=== PATIENT | male | born 1950 | race Caucasian/White ===

== ENCOUNTER 2020-12-11 18:38 | Emergency (ER) | payer MEDICARE, OTHER ==
[~2020-12-11] VITALS: Ht 175.3 cm; Wt 79.4 kg
[2020-12-11] MEDS ORDERED: LIDOCAINE HCL-MPF 2% 5ML VIAL ONE (18:44)
[2020-12-11] MEDS ORDERED: LIDOCAINE HCL-MPF 2% 5ML VIAL IM SCH (19:00)
[2020-12-11] MEDS ORDERED: DIPH,PERTUSS(ACELL),TET VAC/PF 0.5 ML VIAL IM ONE ×2 (19:00→21:00)
[2020-12-11 20:24] VITALS: BP 155/88
== END 2020-12-11 20:21 | disposition home or self-care (01) ==
LOC: EDH 18:41
DX: S61.412A Laceration without foreign body of left hand, initial encounter (principal); W25.XXXA Contact with sharp glass, initial encounter; Y93.89 Activity, other specified; Y92.89 Other specified places as the place of occurrence of the external cause; Y99.8 Other external cause status
CPT/HCPCS: 12042; 73120; 90471; 90715; 99284; J3490

== ENCOUNTER 2022-03-03 20:22 | Emergency (ER) | payer MEDICARE, OTHER ==
[2022-03-03 20:23] VITALS: BP 169/74
[2022-03-03] MEDS ORDERED: LIDOCAINE HCL 1% 10 ML VIAL ONE (20:34)
== END 2022-03-03 22:34 | disposition home or self-care (01) ==
LOC: EDH 20:22
DX: S30.1XXA Contusion of abdominal wall, initial encounter (principal); X58.XXXA Exposure to other specified factors, initial encounter; Y93.89 Activity, other specified; Y92.89 Other specified places as the place of occurrence of the external cause; Y99.8 Other external cause status
CPT/HCPCS: 99282; J3490